=== PATIENT | female | born 1955 | race Caucasian/White ===

== ENCOUNTER → 2016-10-09 | Outpatient (CLI) | payer BC ==
--- NOTE | 2016-10-09 08:10 | MR ---
EXAMINATION TYPE: MR cspine/lspine wo con DATE OF EXAM: 10/09/2016 COMPARISON: NONE HISTORY: csp disc disorder /w and lsp disc disorders w/radiculopathy per order. Headache with neck an d shoulder pain for 6 months with pain or weakness in both arms also per patient. Severe low back bakari n going into bilateral legs for 6 months per patient. TECHNIQUE: Multiplanar, multisequence imaging of the cervical and lumbar performed without IV contras t. FINDINGS: C-SPINE: FINDINGS: Sagittal images of the cervical spine show the craniocervical junction to appear within nor mal limits. The cervical and upper thoracic spinal cord is normal in course, caliber, and signal. V ertebral alignment is anatomic. The vertebral body and intravertebral disk heights are normal. No l arge posterior disc herniations are seen on sagittal images. The bone marrow signal intensity is with in normal limits. No significant spurring is seen. Axial images show the C2-C3 and C3-C4 levels to appear within normal limits. Axial images at C4-C5 level show right paracentral/foraminal disc protrusion effacing anterolateral t hecal sac and causing asymmetric mild to moderate right-sided neural foraminal narrowing. Left-sided neural foramen is patent near axial image 29. Axial images at C5-C6 level show uncovertebral facet degenerative changes causing mild to moderate le ft greater than right neural foraminal narrowing. Spinal canal is preserved. Axial images at C6-C7 and C7-T1 levels are felt within normal limits. IMPRESSION: Some degenerative changes in the mid cervical spine as detailed above. L-SPINE: Sagittal images of the lumbar spine show vertebral body heights and alignment to appear satisfactory. Multilevel disc desiccation is present. There is fairly moderate disc space narrowing L5-S1 level. S mall posterior disc herniations are seen up for to L5 and L5-S1 levels on sagittal images. The conus medullaris is normal in position and signal ending at mid L1 level. The bone marrow signal intensity is within normal limits. No significant spurring is seen. Axial images show the T12-L1, L1-L2, and L2-L3 levels all to appear within normal limits. Axial images at the L3-L4 level show mild facet degenerative changes and ligament flavum hypertrophy mildly effacing posterior lateral thecal sac. There is mild broad disc bulge minimally effacing the a nterior thecal sac. Bilateral neural foramina are patent. Axial images at L4-L5 level show mild/moderate facet degenerative changes and ligament flavum hypertr ophy effacing posterior lateral thecal sac on axial image 8. There is mild broad disc bulge with cent ral disc protrusion component effacing anterior thecal sac. There is mild bilateral anterior inferior neural foraminal narrowing. Increased signal posteriorly consistent with annular tear is present. Axial images at L5-S1 level show mild to moderate facet degenerative changes bilaterally. There is br oad disc bulge seen minimally effacing the anterior thecal sac. There is mild right and mild to moder ate left-sided anterior inferior neural foraminal narrowing at this level identified. There is slight asymmetric nodular thickening centrally in the left adrenal gland measuring 1.2 x 1.0 cm on axial image 27. This can be further investigated with adrenal protocol CT or MRI if desired. IMPRESSION: Multilevel degenerative changes in lumbar spine most prominent in mid to lower lumbar lev els as detailed above. Incidental 1.2 cm nonspecific left adrenal nodule.
== END | disposition home or self-care (01) ==
LOC: RADMRIMAIN 06:26
PROVIDERS: ATTEND Neurological Surgery
DX: M47.26 Other spondylosis with radiculopathy, lumbar region (principal); M47.22 Other spondylosis with radiculopathy, cervical region
CPT/HCPCS: 72141; 72148

== ENCOUNTER → 2017-07-13 | Outpatient (CLI) | payer BC ==
--- NOTE | 2017-07-13 21:07 | MR ---
EXAMINATION TYPE: MR cervical spine wo con DATE OF EXAM: 07/13/2017 COMPARISON: NONE HISTORY: Radiculopathy cervical neck and arm pain TECHNIQUE: Multiplanar, multisequence images of the cervical spine were acquired. C2-C3: No evidence for degenerative disc disease. No disc bulge/herniation or protrusion. No Canal stenosis. Foramina are patent bilaterally. C3-C4: No evidence for degenerative disc disease. No disc bulge/herniation or protrusion. No Canal stenosis. Foramina are patent bilaterally. C4-C5: There is moderate to severe right foraminal narrowing due to uncovertebral joint hypertrophy a nd disc bulging. No AP spinal canal stenosis is present. Minimal disc bulge into the right paracentra l region near the right foramen orifice may be present. Left foramen is widely patent. No cord contac t or cord deformity is evident. C5-C6: Minimal disc bulge is anterior thecal sac contact. Uncovertebral joint hypertrophy is present with mild bilateral foraminal narrowing. No cord contact or cord deformity is evident. C6-C7: No evidence for degenerative disc disease. No disc bulge/herniation or protrusion. No Canal stenosis. Foramina are patent bilaterally. C7-T1: No evidence for degenerative disc disease. No disc bulge/herniation or protrusion. No Canal stenosis. Foramina are patent bilaterally. Cervical segments are intact. There is normal alignment. Cervical spinal cord is of normal signal. Craniovertebral junction relationships are within normal limits. IMPRESSION: Right paracentral and right lateral disc bulge as well as uncovertebral joint hypertrophy causing mod erate to severe right foraminal narrowing C4-5.
== END | disposition home or self-care (01) ==
LOC: RADMRIMAIN 19:34
PROVIDERS: ATTEND Neurological Surgery
DX: M99.71 Connective tissue and disc stenosis of intervertebral foramina of cervical region (principal); M50.122 Cervical disc disorder at C5-C6 level with radiculopathy
CPT/HCPCS: 72141

== ENCOUNTER → 2017-11-22 | Outpatient (CLI) | payer BC ==
--- NOTE | 2017-11-23 09:45 | XR ---
Lumbar spine with flexion and extension views HISTORY: Low back pain radiating down both legs 8 views of the lumbar spine correlated to lumbar MRI 10/09/2016 Patient is status post posterior lumbar fusion at L4-5, intervertebral spacing blocks is present. The re is no evident spondylolysis. Lumbar vertebral bodies show stable height and stable alignment, mild anterolisthesis grade 1 L4-5. Surgical clips present in the right upper quadrant. There is loss of d isc height L5-S1 with associated vacuum phenomenon and spondylosis. Vascular calcifications are noted incidentally. No slipped noted on flexion and extension views. IMPRESSION: Postop changes, stable alignment, degenerative disc disease
== END ==
LOC: RADXRMAIN 16:16
PROVIDERS: ATTEND Neurological Surgery
DX: M51.36 Other intervertebral disc degeneration, lumbar region (principal); Z98.890 Other specified postprocedural states
CPT/HCPCS: 72114

== ENCOUNTER 2019-02-22 16:59 | Emergency (ER) | payer BC, OTHER ==
--- NOTE | 2019-02-22 18:30 | ED ---
Lower Extremity Injury HPI - General Chief Complaint: Extremity Injury, Lower Stated Complaint: lt ankle injury Time Seen by Provider: 02/22/19 18:07 Source: patient Mode of arrival: ambulatory Limitations: no limitations - History of Present Illness Initial Comments: patient is a 63-year-old female presenting to emergency Department with complaints of left foot and ankle pain x 10 days. patient states she was laying in bed and her left foot fell asleep so she went to stand up however her foot twisted and she fell down.patient states she had instant severe pain as well as swelling. Patient states she went to [facility] that same day for x-rays but they found no acute fractures dislocations. She was given an ankle air cast to wear however she continues to have pain and swelling. Patient also has significant bruising of her left foot. Patient denies any previous injuries or surgeries to her left lower extremity. Patient has been taking Motrin without improvement. Patient has no other complaints at this time. Upon arrival to ER, her vital signs are stable. - Related Data Allergies Allergy/AdvReac Type Severity Reaction Status Date / Time No Known Allergies Allergy Verified 02/22/19 17:14 Review of Systems ROS Statement: Those systems with pertinent positive or pertinent negative responses have been documented in the HPI. ROS Other: All systems not noted in ROS Statement are negative. Past Medical History Past Medical History: Asthma, Hypertension Additional Past Medical History / Comment(s): irregular heartrate History of Any Multi-Drug Resistant Organisms: None Reported Past Surgical History: Adenoidectomy, Back Surgery, Cholecystectomy, Tonsillectomy Past Psychological History: Depression Smoking Status: Current every day smoker Past Alcohol Use History: Occasional Past Drug Use History: None Reported General Exam - General Exam Comments Initial Comments: GENERAL: Well-appearing, well-nourished and in no acute distress. HEAD: Atraumatic, normocephalic. EYES: Pupils equal round and reactive to light, extraocular movements intact, sclera anicteric, conjunctiva are normal. ENT: Nares patent, oropharynx clear without exudates. Moist mucous membranes. NECK: Normal range of motion, supple without lymphadenopathy or JVD. LUNGS: Breath sounds clear to auscultation bilaterally and equal. No wheezes rales or rhonchi. HEART: Regular rate and rhythm without murmurs, rubs or gallops. ABDOMEN: Soft, nontender, normoactive bowel sounds. No guarding, no rebound. No masses appreciated. : Deferred EXTREMITIES: pain with palpation of the left dorsal foot, left lateral malleolus as well as middle of left tib-fib. Patient does have swelling and bruising along the left foot. Patient has slightly decreased range of motion of the left ankle. Patient is neurovascularly intact. Patient has full range of motion of the left knee. SKIN: Warm, Dry, normal turgor, no rashes or lesions noted. Limitations: no limitations Course Vital Signs 02/22/19 02/22/19 02/22/19 17:09 18:22 20:07 Temperature 97.6 F 97.5 F L Pulse Rate 75 72 76 Respiratory 19 18 20 Rate Blood Pressure 129/82 142/70 144/74 O2 Sat by Pulse 96 100 98 Oximetry Medical Decision Making - Medical Decision Making patient is a 63-year-old female presenting with left foot and ankle pain 10 days after falling and twisting. x-rays of the left tib-fib, left ankle, left foot showed no acute abnormalities. I discussed these findings with the patient's physician is most likely an ankle sprain and/or foot sprain. Patient will continue with Aircast brace as needed for comfort as well as good supportive shoe. Patient can also continue with ice, elevation, compression. Patient is stable for discharge at this time and she is in agreement with this plan of care. Patient will follow up with PCP if symptoms persist after 2 weeks. Case discussed with Dr. Hein. Disposition Clinical Impression: Left foot pain, Left ankle sprain Disposition: HOME SELF-CARE Condition: Stable Instructions (If sedation given, give patient instructions): Ankle Sprain (ED) Additional Instructions: Please return to the Emergency Department if symptoms worsen or any other concerns. Continue to wear his brace as needed. Continue with ice, elevation, compression, wear a supportive shoe. Follow-up with PCP if symptoms persist after 2 weeks. Is patient prescribed a controlled substance at d/c from ED?: No Referrals: Nonstaff,Physician [Primary Care Provider] - 1-2 days
--- NOTE | 2019-02-22 19:29 | XR ---
EXAMINATION TYPE: XR ankle complete LT DATE OF EXAM: 02/22/2019 COMPARISON: NONE HISTORY: Ankle pain TECHNIQUE: 3 views FINDINGS: Ankle mortise is anatomic. There is mild soft tissue swelling over the lateral malleolus. I see no Fracture nor dislocation. Joint spaces are fairly normal. IMPRESSION: mild soft tissue swelling. No fracture.
--- NOTE | 2019-02-22 19:30 | XR ---
EXAMINATION TYPE: XR foot complete LT DATE OF EXAM: 02/22/2019 COMPARISON: NONE HISTORY: Sprained ankle and foot TECHNIQUE: 3 views FINDINGS: Metatarsals are intact. I see no fracture nor dislocation. There is mild to moderate osteoa rthritis in the first MP joint. IMPRESSION: Osteoarthritis in the first MP joint. No fracture seen.
--- NOTE | 2019-02-22 19:32 | XR ---
EXAMINATION TYPE: XR tibia fibula LT DATE OF EXAM: 02/22/2019 COMPARISON: NONE HISTORY: Pain TECHNIQUE: 2 views FINDINGS: Tibia and fibula appear intact. I see no fracture nor dislocation. Joint spaces are fairly normal. There is degenerative cyst in the medial dome of the talus. IMPRESSION: Degenerative cystic changes in the medial dome of the talus related to osteoarthritis. No fracture seen.
[2019-02-22 20:09] VITALS: BP 144/74; PULSE 76; RESP 20; TEMP 97.5
== END 2019-02-22 20:08 | disposition home or self-care (01) ==
LOC: EC 16:59
DX: S93.402A Sprain of unspecified ligament of left ankle, initial encounter (principal); S90.32XA Contusion of left foot, initial encounter; F17.200 Nicotine dependence, unspecified, uncomplicated; W01.0XXA Fall on same level from slipping, tripping and stumbling without subsequent striking against object, initial encounter; Y93.89 Activity, other specified
CPT/HCPCS: 99283